=== PATIENT | male | born 1960 | race Caucasian/White ===

== ENCOUNTER 2020-07-03 15:04 | Emergency (ER) | payer MEDICARE, OTHER ==
[2020-07-03 17:07] LABS: HEMOGLOBIN 11.4 gm/dl (14.0-17.5); RED BLOOD COUNT 4.01 M/UL (4.20-5.50); WHITE BLOOD COUNT 18.2 K/UL (4.5-11.0)
[2020-07-03 17:55] LABS: BUN/CREATININE RATIO 15 (0-10)
[2020-07-03] MEDS ORDERED: ZOFRAN4 MG PO (19:45)
== END 2020-07-03 19:57 | disposition left against medical advice (07) ==
LOC: ER1 15:04
PROVIDERS: Physician Assistant Medical
DX: C78.7 Secondary malignant neoplasm of liver and intrahepatic bile duct (principal); E27.8 Other specified disorders of adrenal gland; I81 Portal vein thrombosis; R94.5 Abnormal results of liver function studies; E87.1 Hypo-osmolality and hyponatremia; I10 Essential (primary) hypertension; F17.210 Nicotine dependence, cigarettes, uncomplicated; Z53.20 Procedure and treatment not carried out because of patient's decision for unspecified reasons
CPT/HCPCS: 80053; 81001; 83605; 83690; 85025; 85652; 86140; 96374; 96375; 99284; J2270; J2405; J7030; Q9967